=== PATIENT | male | born 1990 | race African-American/Black ===

== ENCOUNTER 2018-12-05 00:20 | Emergency (ER) | payer MEDICAID ==
[2018-12-05 04:44] LABS: BASOPHILS % 0.6 % (0.0-2.0); EOSINOPHILS % 1.8 % (0.0-5.0); HEMATOCRIT. 46.2 % (42.0-52.0); HEMOGLOBIN. 15.6 g/dL (14.0-18.0); MEAN CORPUSCULAR HEMOGLOBIN 30.6 pg (28.0-32.0); MEAN CORPUSCULAR VOLUME 90.5 fL (80.0-94.0); MEAN PLATELET VOLUME 8.7 fl (7.4-10.4); MONOCYTES % 7.2 % (2.0-8.0); NEUTROPHILS % 54.4 % (40.0-76.0); PLATELET 247 x1000/uL (130-400); RED BLOOD CELL COUNT 5.11 mill/uL (4.7-6.1); RED CELL DISTRIBUTION WIDTH 14.9 % (11.6-14.6)
[2018-12-05 05:17] LABS: CHLORIDE 108 mEq/L (98-107)
[2018-12-05] MEDS ORDERED: KETOROLAC 60MG/2ML VIAL IM ONE (05:30)
[2018-12-05 05:52] VITALS: BP 138/89
[2018-12-05 06:54] LABS: *AMPHETAMINES SCREEN URINE NEGATIVE (NEGATIVE); *BARBITURATES SCREEN URINE NEGATIVE (NEGATIVE)
[2018-12-05 06:55] LABS: *BENZODIAZEPINES SCREEN URINE NEGATIVE (NEGATIVE); *COCAINE SCREEN URINE NEGATIVE (NEGATIVE); METHADONE URINE SCREEN NEGATIVE (NEGATIVE); OPIATES URINE SCREEN NEGATIVE (NEGATIVE); PHENCYCLIDINE URINE SCREEN NEGATIVE (NEGATIVE)
[2018-12-05 06:56] LABS: CANNABINOID URINE SCREEN NEGATIVE (NEGATIVE)
== END 2018-12-05 05:55 | disposition home or self-care (01) ==
LOC: ER 00:20
DX: R07.89 Other chest pain (principal); F43.9 Reaction to severe stress, unspecified; R10.13 Epigastric pain; Z98.890 Other specified postprocedural states
CPT/HCPCS: 36415; 71045; 80053; 80305; 84484; 85025; 93005; 96372; 99284; J1885; Z7610

== ENCOUNTER 2019-01-16 11:02 | Emergency (ER) | payer MEDICAID ==
[~2019-01-16] VITALS: Ht 175.3 cm; Wt 91.0 kg
[2019-01-16 12:10] LABS: CLARITY URINE CLEAR (CLEAR); COLOR URINE DARK YELLOW (YELLOW); KETONES URINE TRACE (NEGATIVE); LEUKOCYTE ESTERASE URINE NEGATIVE (NEGATIVE); NITRITE URINE NEGATIVE (NEGATIVE); OCCULT BLOOD URINE TRACE (NEGATIVE); PROTEIN URINE NEGATIVE (NEGATIVE); SPECIFIC GRAVITY URINE 1.036 (1.005-1.030)
[2019-01-16 14:48] VITALS: BP 134/90
== END 2019-01-16 14:50 | disposition home or self-care (01) ==
LOC: ER 11:02
DX: N45.4 Abscess of epididymis or testis (principal); Z98.890 Other specified postprocedural states
CPT/HCPCS: 76870; 81003; 93976; 99284

== ENCOUNTER 2019-05-19 00:42 | Emergency (ER) | payer MEDICAID ==
[~2019-05-19] VITALS: Ht 175.3 cm; Wt 102.0 kg
[2019-05-19 00:50] VITALS: BP 151/106
[2019-05-19] MEDS ORDERED: KETOROLAC 15MG/ML VIAL ONE (04:48)
[2019-05-19 08:54] LABS: CHLORIDE 97 mEq/L (98-107)
[2019-05-19 09:24] LABS: BASOPHILS % 0.6 % (0.0-2.0); HEMATOCRIT. 48.3 % (42.0-52.0); HEMOGLOBIN. 16.9 g/dL (14.0-18.0); LYMPHOCYTES % 38.3 % (20.0-50.0); MEAN CORPUSCULAR HEMOGLOBIN 30.7 pg (28.0-32.0); MEAN CORPUSCULAR VOLUME 87.9 fL (80.0-94.0); MEAN PLATELET VOLUME 8.5 fl (7.4-10.4); MONOCYTES % 9.7 % (2.0-8.0); NEUTROPHILS % 50.4 % (40.0-76.0); PLATELET 278 x1000/uL (130-400); RED BLOOD CELL COUNT 5.49 mill/uL (4.7-6.1)
== END 2019-05-19 10:40 | disposition left against medical advice (07) ==
LOC: ER 00:42
DX: R07.9 Chest pain, unspecified (principal); M25.512 Pain in left shoulder; M79.622 Pain in left upper arm; R10.9 Unspecified abdominal pain
CPT/HCPCS: 36415; 71045; 80053; 83690; 84484; 85025; 85379; 93005; 99284; J1885; Z7610